=== PATIENT | female | born 1995 | race Caucasian/White ===

== ENCOUNTER 2019-05-20 05:51 | Day surgery (SDC) | payer BC ==
[~2019-05-20 05:51] MED LIST: Buffered Lidocaine 1% SYRIN* 1 ML/SYRINGE INTRADERM ONE
[2019-05-20] MEDS ORDERED: Dexamethasone IV* 4 MG/ML 1 ML (4 MG) IV SLOW PU ONE (06:00)
[2019-05-20] MEDS ORDERED: Lactated Ringers 1000 ML Bag* 1,000 ML IV SCH (06:00)
[2019-05-20] MEDS ORDERED: Famotidine IV* 10 MG/ML 2 ML (20 mg) IV ONE (06:00)
[2019-05-20] MEDS ORDERED: Dexamethasone IV* 4 MG/ML 1 ML (4 MG) ONE (06:46)
[2019-05-20] MEDS ORDERED: Famotidine IV* 10 MG/ML 2 ML (20 mg) ONE (06:46)
[2019-05-20] MEDS ORDERED: Bupivacaine 0.25% SDV PF* 10 ML VIAL INJ ONE ×2 (06:55→09:15)
[2019-05-20] MEDS ORDERED: Midazolam* 1 MG/ML 2 ML VIAL (2 MG) ONE (08:31)
[2019-05-20] MEDS ORDERED: fentaNYL* 50 MCG/ML 2 ML VIAL (100 MCG VIAL) ONE (08:31)
[2019-05-20] MEDS ORDERED: Propofol* 10 MG/ML 20 ML BTL ONE (08:40)
[2019-05-20] MEDS ORDERED: Ketorolac INJ* 30 MG/ML 1 ML VIAL ONE (08:40)
[2019-05-20] MEDS ORDERED: Lidocaine 2% PF * 5 ML VIAL ONE (08:40)
[2019-05-20] MEDS ORDERED: Acetaminophen TAB* 325 MG PO PRN (08:50)
[2019-05-20] MEDS ORDERED: HYDROcodone/ACETAMIN 5-325 MG* 1 TAB PO PRN ×2 (08:50)
[2019-05-20] MEDS ORDERED: diPHENhydraMINE IV* 50 MG/ML 1 ml VIAL (BENADRYL) IV PRN (08:50)
[2019-05-20] MEDS ORDERED: DiMENhydriNATE IV* 50 MG/ML VIAL IV PUSH PRN (08:50)
[2019-05-20] MEDS ORDERED: Ondansetron INJ* 2 MG/ML VIAL IV PRN (08:50)
[2019-05-20] MEDS ORDERED: PROCHLORPERAZINE INJ 5 MG/ML 2 ML VIAL IV PRN (08:50)
[2019-05-20] MEDS ORDERED: Naloxone* 0.4 MG/ML 1 ML VIAL IV PRN (08:50)
[2019-05-20] MEDS ORDERED: fentaNYL* 50 MCG/ML 2 ML VIAL (100 MCG VIAL) IV PRN (08:50)
[2019-05-20 10:21] VITALS: BP 119/84
--- NOTE | 2019-05-20 14:05 | OP ---
DATE OF OPERATION: 05/20/19 - [facility] DATE OF : [birth year] SURGEON: Naveen Scanlon MD HEMSTITCHER: ALISHA Garcia ANESTHESIOLOGIST: Dr. Cline. ANESTHESIA: Local MAC. PRE-OP DIAGNOSES: 1. Right carpal tunnel syndrome. 2. 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 POST-OP DIAGNOSES: 1. Right carpal tunnel syndrome. 2. 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 OPERATIVE PROCEDURE: 1. Right median nerve decompression in the proximal forearm with release of the lacertus fibrosus. 2. Right carpal tunnel release. INDICATIONS: Sonia has signs and symptoms consistent with median nerve compression at the carpal tunnel and at the proximal forearm. We talked about risks and benefits. She wanted to proceed with surgery. ESTIMATED BLOOD LOSS: 2 mL. COMPLICATIONS: None. FINDINGS: See above and below. DESCRIPTION OF PROCEDURE: Sonia was seen in the preoperative holding area. The correct site, side, and procedure were identified. We came back to the operating room where the arm was prepped and draped in the usual fashion and a time-out was performed. The arm was exsanguinated with the Esmarch and the tourniquet was inflated to 250 mmHg. I went ahead and made a 2 to 3 cm incision in the proximal palm in the typical location for an open carpal tunnel release. Dissection was carried down through the subcutaneous tissue and palmar fascia. The transverse carpal ligament was released just off the radial aspect of the hook of the hamate. The release was completed distally and proximally. I released the subcutaneous tissue and fascia. I placed a Celestine retractor and then released the remainder of the transverse carpal ligament and distal antebrachial fascia to a level several centimeters proximal to the wrist flexion crease. I confirmed the decompression. Everything was looking very good, so we irrigated out the wound and the skin was closed with 4-0 nylon suture. I then made a 2 to 3 cm incision transversely just distal to the antecubital flexion crease over the lacertus fibrosus. Dissection was carried down. Full- thickness flaps were raised off of the fascia and lacertus. I went ahead and used my tenotomy scissors to fully release the lacertus fibrosus as well as the remainder of the antebrachial fascia in the area. This provided very nice release. I was very pleased with the decompression. The wound was irrigated out and the skin was closed with 3-0 Monocryl suture. A 0.25% Marcaine had been infiltrated prior to making skin incisions all about the operative areas. Soft dressings were applied and she was taken to the recovery room in stable condition. [id number]/[facility] #: [id number] CIERA
== END 2019-05-20 10:26 | disposition home or self-care (01) ==
LOC: OR 05:51
PROVIDERS: ATTEND Orthopaedic Surgery Hand Surgery
DX: G56.01 Carpal tunnel syndrome, right upper limb (principal); G56.11 Other lesions of median nerve, right upper limb; F41.9 Anxiety disorder, unspecified
CPT/HCPCS: 81025; J1100; J1885; J2250; J2704; J3010; J3490

== ENCOUNTER 2019-12-26 19:11 | Emergency (ER) | payer BC, OTHER ==
[2019-12-26 19:47] VITALS: BP 127/74
--- NOTE | 2019-12-26 20:21 | UC ---
Knee Pain HPI - HPI Summary HPI Summary: The patient is a 24-year-old female that injured her left knee yesterday skiing. She states that her leg went out from under her causing a valgus strain. She is able to continue skiing. Her knee feels swollen now and anand. She has had no history of a left knee injury. - History of Current Complaint Chief Complaint: UCLowerExtremity Stated Complaint: KNEE INJURY Time Seen by Provider: 12/26/19 19:47 Hx Obtained From: Patient Hx Last Menstrual Period: iud Onset/Duration: Sudden Onset, Lasting Hours Severity Initially: Moderate Severity Currently: Mild Pain Intensity: 3 Pain Scale Used: 0-10 Numeric Character: Aching, Throbbing, Spasmodic Aggravating Factor(s): Movement, Weight Bearing Alleviating Factor(s): Rest Associated Signs And Symptoms: Positive: Swelling Able to Bear Weight: Yes Legs: 1 - tender - Allergies/Home Medications Allergies/Adverse Reactions: Allergies Allergy/AdvReac Type Severity Reaction Status Date / Time No Known Allergies Allergy Verified 12/26/19 19:47 Home Medications: Home Medications Ibuprofen TAB* [Motrin TAB* 800 MG] 800 mg PO ONCE PRN 12/26/19 [History Confirmed 12/26/19] Levonorgestrel (Iud) [Mirena IUD] 20 mcg IU ONCE 12/26/19 [History Confirmed ] PMH/Surg Hx/FS Hx/Imm Hx Previously Healthy: Yes - Surgical History Surgical History: Yes Surgery Procedure, Year, and Place: right knee arthroscopy, 2012, [facility]. right foot , 2011, [facility]. , right wrist , 2010, [facility]. DIMPLE IN LIP REMOVED, 2009. R hand carpal tunnel 2018 - Family History Known Family History: Positive: Unknown, Non-Contributory - Social History Alcohol Use: Daily Alcohol Amount: 2 per day Substance Use Type: Marijuana Substance Use Comment - Amount & Last Used: 2x week Smoking Status (MU): Never Smoked Tobacco Review of Systems All Other Systems Reviewed And Are Negative: Yes Constitutional: Positive: Negative Skin: Positive: Negative Eyes: Positive: Negative ENT: Positive: Negative Respiratory: Positive: Negative Cardiovascular: Positive: Negative Gastrointestinal: Positive: Negative Genitourinary: Positive: Negative Motor: Positive: Negative Neurovascular: Positive: Negative Musculoskeletal: Positive: Arthralgia Neurological/Mental Status: Positive: Negative Psychological: Positive: Negative Physical Exam Triage Information Reviewed: Yes Appearance: Well-Appearing, No Pain Distress, Well-Nourished Vital Signs: Initial Vital Signs Temp 98.6 F 12/26/19 19:42 Pulse 82 12/26/19 19:42 Resp 16 12/26/19 19:42 BP 127/74 12/26/19 19:42 Pulse Ox 97 12/26/19 19:42 Vital Signs Reviewed: Yes Eyes: Positive: Conjunctiva Clear ENT: Positive: Pharynx normal, Uvula midline. Negative: Nasal congestion, Nasal drainage, Trismus, Hoarse voice Neck: Positive: Supple, Nontender, No Lymphadenopathy Respiratory: Positive: Lungs clear, Normal breath sounds, No respiratory distress, No accessory muscle use Cardiovascular: Positive: RRR, No Murmur Musculoskeletal: Positive: Edema @ - effusion left knee, Other: - tender medial joint/- ant drawer + antalgic gait Neurological: Positive: Alert Psychological Exam: Normal Knee Pain Course/Dx - Differential Dx/Diagnosis Provider Diagnosis: Left knee injury Discharge ED - Sign-Out/Discharge Documenting (check all that apply): Patient Departure All imaging exams completed and their final reports reviewed: No - Discharge Plan Condition: Stable Disposition: HOME Patient Education Materials: Knee Sprain (DC), Knee Immobilizer (ED) Forms: *Work Release Referrals: Naveen Scanlon MD [Medical Doctor] - As Soon As Possible Additional Instructions: rest elevate ice advil or aleve recheck for new or worsening symptoms I suspect a MCL strain and ? meniscus tear - Billing Disposition and Condition Condition: STABLE Disposition: Home
--- NOTE | 2019-12-27 10:01 | UC ---
- Progress Note Progress Note: Patient Name: MAX FREEDMAN Medical Record#: [id number] Ordering Physician: Marcelo Cronin MD Acct.#: [id number] : 1995 Age: 24 Sex: F Location: [facility] Exam Date: 12/26/192001 ADM Status: DEP ER Order Information: KNEE LEFT 4+ VWS Accession Number: [id number] CPT: 34296 INDICATION: Left knee pain. COMPARISON: June 29, 2018 left knee radiograph TECHNIQUE: 4 views of the left knee were obtained. FINDINGS: There is small to moderate effusion. The bone mineralization is within normal limits. No fracture is identified. Anatomic alignment is maintained. The joint spaces are preserved. IMPRESSION: Effusion with no fracture identified. R0 Preliminary Imaging Read R0 <Electronically signed by Deniz Costa MD in OV> 12/27/19 0800 Dictated By: Deniz Costa MD Dictated Date/Time: 12/27/19757 Transcribed Date/Time: 12/27/19757 Copy to: CC:Caleb Leo MD; Marcelo Cronin MD Imaging - [facility] Imaging - [facility] [address] [address] ph ([phone]) ph ([phone]) ph ([phone]) This report is only to be considered final once signed by the Provider(s) as displayed in the "<Electronically Signed by >" field (s). Absence of a signature indicates the report is in a draft status and still needs to be finalized. In the event this document was created by someone other than the signing Provider, the individual initiating the document will be listed in the "Entered by:" or "Dictated by:" carlson. 1 of 1 Course/Dx - Diagnoses Provider Diagnoses: Left knee injury Discharge ED - Sign-Out/Discharge Documenting (check all that apply): Post-Discharge Follow Up All imaging exams completed and their final reports reviewed: Yes - Discharge Plan Condition: Stable Disposition: HOME Patient Education Materials: Knee Sprain (DC), Knee Immobilizer (ED) Forms: *Work Release Referrals: Naveen Scanlon MD [Medical Doctor] - As Soon As Possible Additional Instructions: rest elevate ice advil or aleve recheck for new or worsening symptoms I suspect a MCL strain and ? meniscus tear - Billing Disposition and Condition Condition: STABLE Disposition: Home
== END 2019-12-26 20:32 | disposition home or self-care (01) ==
LOC: UCEAST 19:11
DX: S89.92XA Unspecified injury of left lower leg, initial encounter (principal); X58.XXXA Exposure to other specified factors, initial encounter; Y93.23 Activity, snow (alpine) (downhill) skiing, snowboarding, sledding, tobogganing and snow tubing; Y92.9 Unspecified place or not applicable
CPT/HCPCS: 99212; G0463

== ENCOUNTER 2020-01-23 05:34 | Day surgery (SDC) | payer BC ==
[2020-01-23] MEDS ORDERED: Buffered Lidocaine 1% SYRIN* 1 ML/SYRINGE INTRADERM ONE (05:56)
[2020-01-23] MEDS ORDERED: ceFAZolin 2 GM PREMIX in ORs 2 GM/50 ML BAG ONE (05:56)
[2020-01-23] MEDS ORDERED: Lactated Ringers 1000 ML Bag* 1,000 ML IV SCH (06:00)
[2020-01-23] MEDS ORDERED: fentaNYL* 50 MCG/ML 2 ML VIAL (100 MCG VIAL) ONE ×4 (07:12→09:33)
[2020-01-23] MEDS ORDERED: Midazolam* 1 MG/ML 2 ML VIAL (2 MG) ONE (07:12)
[2020-01-23] MEDS ORDERED: ROPIVACAINE 5 MG/ML 30 ML BTL (0.5%) ONE (07:19)
[2020-01-23] MEDS ORDERED: Acetaminophen IV 1GM/100ML * 100 ML ONE (08:00)
[2020-01-23] MEDS ORDERED: Dexamethasone IV* 4 MG/ML 1 ML (4 MG) ONE (08:05)
[2020-01-23] MEDS ORDERED: Ondansetron INJ* 2 MG/ML VIAL ONE (08:05)
[2020-01-23] MEDS ORDERED: Lidocaine 2% PF * 5 ML VIAL ONE (08:05)
[2020-01-23] MEDS ORDERED: Propofol* 10 MG/ML 20 ML BTL ONE (08:05)
[2020-01-23] MEDS ORDERED: Ketorolac INJ* 30 MG/ML 1 ML VIAL ONE (09:28)
--- NOTE | 2020-01-23 10:05 | OP ---
Operative Report - Blank - Operative Report Date of Operation: 01/23/20 Note: PATIENT: Sonia Cleaning DATE OF : 1995 DATE OF SURGERY: 01/23/2020 SURGEON: Prateek Majano MD FLOORING INSTALLER: ALISHA Quintanilla, whos assistance was necessary for positioning, retraction, help with instrumentation, and closure. ANESTHESIOLOGIST: Dr. Medrano PREOPERATIVE DIAGNOSIS: Left knee ACL tear POSTOPERATIVE DIAGNOSIS: Left knee ACL tear OPERATION: Left knee arthroscopic ACL reconstruction with hamstring tendon autograft ANESTHESIA: General + block IMPLANTS: Arthrex TightRope for femoral fixation. Arthrex GraftBolt for tibial fixation. TOURNIQUET TIME: Less than 2 hours with a well-padded thigh tourniquet SPECIMENS: none ESTIMATED BLOOD LOSS: minimal COMPLICATIONS: none STATUS: Stable from the operating room to the recovery room and then home. INDICATIONS FOR PROCEDURE: Sonia sustained a left ACL tear skiing. Both operative and non operative treatment alternatives were reviewed. Further, the nature and risks of surgery were reviewed in careful detail, in the office as well as the pre-operative holding area. Our discussions regarding the risks of surgery included, but were not limited to, infection, wound problems, nerve injury, neuroma, RSD, persistent symptoms, blood clot, failure of the surgery, re-rupture, post- traumatic arthritis, and even the remote chance of catastrophic complication, including loss of limb. DESCRIPTION OF PROCEDURE: The patient was seen in the preoperative holding unit and informed written consent was obtained. The appropriate extremity was marked. The patient was then brought to the operating room and carefully positioned on the operating room table. Anesthesia was induced. All bony prominences were padded with great care. A well-padded thigh tourniquet was placed. A chlorhexidine based pre- scrub was performed followed by a chloraprep prep and drape in standard sterile fashion. A surgical safety pause was then conducted in which we confirmed the appropriate patient, extremity, planned procedure, availability of equipment, indication and administration of prophylactic antibiotics, and DVT prophylaxis in the form of a compression boot on the non-surgical extremity. I began with an examination of the knee under anesthesia. She had gross laxity on Jacob testing and a positive pivot shift. We began with an Esmarch exsanguination of the limb and inflated the tourniquet. I then made a standard anterolateral knee arthroscopy portal. A diagnostic arthroscopy was performed. The articular cartilage appeared to be in good condition in all three compartments. No meniscal tears were seen. No cysts were appreciated. The ACL was confirmed to be ruptured. I then turned my attention to the hamstring autograft harvest. An approximately 4 cm incision was made over the pes anserinus. The sartorius fascia was then incised distally and the hamstring tendons were visualized from the deep aspect of the pes anserinus. The MCL was visualized on the bone and was left intact. The gracilis and semitendinosus tendons were dissected out. The ends of the tendon were whipstitched with a fiber loop suture. I then utilized a tendon stripper to harvest first the gracilis tendon and then the semi-semitendinosus tendon. Both tendons were robust and of good length. The tendons were then cleared of muscle on the back table and the other ends were again whipstitched with fiber loop sutures. These were quadrupled with the apex of the V being the Arthrex TightRope looped suture. The graft was sized to a 7.5 mm diameter. It was then placed on stretch while I proceeded with a knee arthroscopy. A bacitracin-soaked sponge covered the tendon. The arthroscope was reinserted into the knee and the remnant of the ACL was debrided to provide good visualization of the notch. The lateral wall of the notch was then cleared using a shaver as well as cautery. This was brought all the way back to the posterior edge of the femoral condyle. Additionally, a rosie was made at the tibial insertion of the ACL onto the tibia, which was where I would later place my tibial tunnel. This was in line with the posterior aspect of the anterior horn of the lateral meniscus and on the lateral slope of the medial tibial spine. A femoral flip-cutter guide was then placed through the anterolateral portal to the anatomic spot of the ACL insertion onto the femur. The lateral femur was approached with an approximately 1 cm incision anterior to the posterior aspect of the iliotibial band. Using the guide and flip-cutter, I retrograde drilled a 7.5 mm femoral socket. The femoral socket was visualized through the anteromedial portal with the scope, showing a well-formed socket with good cortical bone laterally. A fiber wire suture was then placed through the femoral tunnel for later graft passage. Attention was then turned to the tibial tunnel. The tibial aiming guide was placed and a guidewire was drilled into the joint. I then utilized a 7.5 mm reamer to overdrill the guidewire and make the tibial tunnel. I then used a suture grasper through the tibial tunnel to grab the looped fiber wire suture and pulled it through the tibial tunnel. I then pulled the tight rope button through the tunnels and watched it flipped under direct visualization on the lateral femoral cortex. I then used a toggling maneuver with traction on the distal end of the graft to toggle the graft up through the tibial tunnel and into the femoral socket. I had previously marked out 20 mm of graft to ensure that at least this much was in the femoral socket, which was achieved. The knee was then cycled through full range of motion numerous times while holding tension on the graft distally. There was no anterior impingement. The knee was then brought to 15 of flexion and a reverse Jacob maneuver was performed. While holding the graft on tension, a nitinol guidewire and dilators were used, and then a GraftBolt sheath and screw were placed into the tibial tunnel, providing excellent fixation. This was a 7 mm GraftBolt. Excess graft was then removed distally. Jacob and pivot shift were then tested and the knee was very stable on Jacob and there was no pivot shift. Final arthroscopic images were obtained. There was no anterior impingement of the graft. All of the wounds were copiously irrigated. The sartorius fascia was closed and then all the wounds were closed in a layered fashion utilizing 0 vicryl, 3-0 Monocryl and 3-0 PDS. The portals were closed with 3-0 nylon sutures. A sterile dressing was then applied, as well as a FELIPA stocking, Cryo/Cuff and Terrance brace with the knee locked in extension. The patient was then awakened from anesthesia and transferred to the recovery room in stable condition. There were no complications. All needle and sponge counts were correct at the end of the case. ATTESTATION: I attest I was present and scrubbed and performed the critical portions of the procedure myself. POSTOPERATIVE PLAN: She will remain toe-touch weight-bearing and follow-up in 2 weeks for likely suture removal. My post-op protocol/instructions were given to the patient.
[2020-01-23] MEDS ORDERED: oxyCODONE TAB* 5 MG TAB PO PRN (10:28)
[2020-01-23] MEDS ORDERED: Naloxone* 0.4 MG/ML 1 ML VIAL IV PRN (10:28)
[2020-01-23] MEDS ORDERED: HYDROmorphone INJ1* 1 MG/ML SYRINGE IV PRN (10:28)
[2020-01-23] MEDS ORDERED: HYDROmorphone INJ1* 1 MG/ML SYRINGE ONE (10:32)
[2020-01-23] MEDS ORDERED: oxyCODONE TAB* 5 MG TAB ONE (10:40)
[2020-01-23 11:02] VITALS: BP 141/89
== END 2020-01-23 11:35 | disposition home or self-care (01) ==
LOC: OR 05:34
PROVIDERS: ATTEND Orthopaedic Surgery
DX: S83.512A Sprain of anterior cruciate ligament of left knee, initial encounter (principal); M25.462 Effusion, left knee; M25.562 Pain in left knee; F41.8 Other specified anxiety disorders; X50.1XXA Overexertion from prolonged static or awkward postures, initial encounter; Y93.23 Activity, snow (alpine) (downhill) skiing, snowboarding, sledding, tobogganing and snow tubing; Y92.89 Other specified places as the place of occurrence of the external cause
CPT/HCPCS: 81025; A9270-GY; C1713; J0690; J1100; J1170; J1885; J2250; J2405; J2704; J2795; J3010